=== PATIENT | male | born 1955 | race Caucasian/White ===

== ENCOUNTER 2019-09-12 13:52 | Outpatient (CLI) | payer OTHER | END 2019-09-12 23:59 | disposition home or self-care (01) | LOC: CFH 13:52 | PROVIDERS: ATTEND Family Medicine | DX: M47.812 Spondylosis without myelopathy or radiculopathy, cervical region (principal); M43.22 Fusion of spine, cervical region; M48.02 Spinal stenosis, cervical region | CPT/HCPCS: 72050 ==